=== PATIENT | female | born 1945 | race Caucasian/White ===

== ENCOUNTER → 2024-02-18 12:48 | Outpatient (REF) | payer OTHER, SELFPAY | LOC: WDC 12:48 | PROVIDERS: ATTENDING PHYSICIAN Internal Medicine | DX: Z12.39 Encounter for other screening for malignant neoplasm of breast (principal); Z12.31 Encounter for screening mammogram for malignant neoplasm of breast | CPT/HCPCS: 77063; 77067 ==

== ENCOUNTER → 2024-03-31 11:12 | Outpatient (REF) | payer OTHER, SELFPAY | LOC: RAD 11:12 | PROVIDERS: ATTENDING PHYSICIAN Internal Medicine | DX: Z78.0 Asymptomatic menopausal state (principal) | CPT/HCPCS: 77080 ==

== ENCOUNTER → 2024-07-08 16:29 | Outpatient (REF) | payer OTHER, SELFPAY | LOC: PAVMRI 16:29 | PROVIDERS: ATTENDING PHYSICIAN Orthopaedic Surgery; FAMILY PHYSICIAN Internal Medicine | DX: M17.11 Unilateral primary osteoarthritis, right knee (principal) | CPT/HCPCS: 73721 ==

== ENCOUNTER 2024-08-06 19:51 | Emergency (ER) | payer OTHER, SELFPAY ==
[2024-08-06 19:52] VITALS: BP 155/80
--- NOTE | 2024-08-06 21:04 | ED.GENMED ---
History of Present Illness
General
Chief Complaint: Eye Problems
Time Seen by Provider: 08/06/24 20:15
History of Present Illness
History of Present Illness:
78-year-old female presenting to the emergency department for redness of her right eye. She reports that she noticed the redness around noon today. She has been in and out of the hospital visiting her who is ill and has been under a lot of
stress. One of the nurses noticed her eye and recommended she get seen in the hospital. Denies visual changes. Denies any trauma. Denies cough or any sneezing. Denies pain around the eye. Denies fever or systemic symptoms. Denies additional
acute medical complaint
Past History
Past History
ED Past Medical History: Hypothyroidism; Negative HTN, IDDM, NIDDM or CO
ED Past Surgical History: Negative Cardiac
Social History
Tobacco: Non-smoker
Alcohol: None
Drug: None
Personal:
Living: with family
Employment: Other
Family History
Family History: Other
Phy Exam
Physical Exam
Physical Exam:
General: Well-appearing, no clinical signs of dehydration, nontoxic and in no acute distress
HEENT: protecting airway, redness to the sclera of the right eye. Extraocular movements intact. Pupils equal and reactive. No swelling to the orbit or eyelid
Neck: appears supple
CV: Normal heart rate
Resp: No accessory muscle use, no increased work of breathing
Abd: no distension
Extremities: No deformities, no swelling
Neuro: alert, no focal neurologic deficit
: deferred
Rectal: deferred
Psych: Normal affect
Skin: Intact
Course
Vital Signs
Initial and Last Documented VS:
Initial Vital Signs
Temp Pulse Resp BP Pulse Ox
97.4 F 59 20 155/80 100
08/06/24 19:52 08/06/24 19:52 08/06/24 19:52 08/06/24 19:52 08/06/24 19:52
Last Documented Vital Signs
Temp Pulse Resp BP Pulse Ox
97.4 F 59 20 155/80 100
08/06/24 19:52 08/06/24 19:52 08/06/24 19:52 08/06/24 19:52 08/06/24 19:52
MDM/Problems Addressed
MDM/Problems Addressed:
78-year-old female presenting for right eye redness. Vital signs are normal.
On exam, patient well-appearing, no acute distress or discomfort. Patient's exam appears consistent with a subconjunctival hemorrhage. No concerning features on examination, with extraocular movements intact, no pain with extraocular movements.
No signs of trauma. Pupils equal and reactive. Patient denying any visual changes. Pressures obtained with David-Pen bilaterally 16, normal. Patient notes that she has been under a lot of stress, likely etiology. Advised saline eyedrops and
ophthalmology follow-up. Otherwise stable for discharge. Return precautions discussed.
*Critical Care Note
Total Time (30-74mins, 75-104mins- exclusive of procedures): Not Applicable
ED Attending Note
-
Portions of this chart may have been created with voice recognition software.� Occasional wrong word or��sound alike� substitutions may have occurred due to the inherent limitations of voice recognition software.
Discharge Plan
Departure
Patient Disposition: Home (Routine Discharge)
Date of Disposition: 08/06/24
Time of Disposition: 21:02
Patient with high blood pressure during this ER visit?: No
Condition: Good
Discharge Problem:
Subconjunctival hemorrhage of right eye
Instructions: How to Use Eye Drops, Subconjunctival Hemorrhage
Prescriptions:
No Action
cyclobenzaprine 10 MG tablet
10 mg PO TIDPRN PRN (Reason: spasm)
levothyroxine 75 MCG tablet
75 mcg PO DAILY AT 0700
famotidine 20 MG tablet
20 mg PO DAILY
gabapentin 300 MG capsule
300 mg PO TID
docosahexaenoic acid-epa 1 CAP capsule
1 cap PO DAILY
Hydrocodone 5/APAP 325
Naproxen
1 tab PO BID
Percocet:
2 tab PO Q6H PRN (Reason: pain)
Vitamin D3:
1 tab PO DAILY
morphine 15 MG tablet extended release
15 mg PO Q12 Qty: 20 0RF
Referrals:
Hilario Harrington MD [Active] -
Activity Restrictions/Additional Instructions:
You were seen in the emergency department for eye redness
You were found to have a subconjunctival hemorrhage
Please follow-up closely with your eye doctor
Return to the emergency department for any worsening of your symptoms including changes in vision, swelling around your eye, or any development of chest pain, difficulty breathing, abdominal pain with persistent vomiting and inability to tolerate
food or liquid by mouth (concern for dehydration), weakness, headache or confusion, fever greater than 100.4, or any additional symptoms that are concerning to you.
Thank you for choosing [facility].
Interventions
Interventions:
*Risk Screen - Suicide Last Done: 08/06/24 19:52
*General Assessment Last Done: 08/06/24 19:52
*Neglect/Abuse Screening Last Done: 08/06/24 19:52
Discharge Date and Time
Print Language: BULGARIAN
== END 2024-08-06 21:26 | disposition home or self-care (01) ==
LOC: EMR 19:51
PROVIDERS: EMERGENCY PHYSICIAN Student in an Organized Health Care Education/Training Program; FAMILY PHYSICIAN Internal Medicine
DX: H11.31 Conjunctival hemorrhage, right eye (principal); E03.9 Hypothyroidism, unspecified
CPT/HCPCS: 99282

== ENCOUNTER → 2024-11-30 15:42 | Outpatient (REF) | payer OTHER, SELFPAY | LOC: MRI 3T 15:42 | PROVIDERS: ATTENDING PHYSICIAN Family Medicine; FAMILY PHYSICIAN Internal Medicine | DX: R42 Dizziness and giddiness (principal) | CPT/HCPCS: 70553; A9575 ==

== ENCOUNTER → 2025-03-06 14:10 | Outpatient (REF) | payer OTHER, SELFPAY | LOC: WDC 14:10 | PROVIDERS: ATTENDING PHYSICIAN Internal Medicine | DX: Z12.31 Encounter for screening mammogram for malignant neoplasm of breast (principal) | CPT/HCPCS: 77063; 77067 ==

== ENCOUNTER → 2025-08-22 08:00 | Outpatient (REF) | payer OTHER, SELFPAY | LOC: HWRCS 08:00 | PROVIDERS: ATTENDING PHYSICIAN Internal Medicine Cardiovascular Disease; FAMILY PHYSICIAN Internal Medicine | DX: R94.31 Abnormal electrocardiogram [ECG] [EKG] (principal); I63.9 Cerebral infarction, unspecified; I49.1 Atrial premature depolarization | CPT/HCPCS: 93306 ==